=== PATIENT | female | born 1960 | race Caucasian/White ===

== ENCOUNTER → 2016-11-04 | Outpatient (CLI) | payer OTHER ==
--- NOTE | 2016-11-04 17:44 | DX ---
Chest, Two Views at 1642 hours History: R07.89. RIGHT SIDED CHEST WALL PAIN Comparison: None. Findings: Cardiac silhouette is within normal range. No definite destructive osseous lesions. No pneu monia, congestive heart failure, pleural effusion, or pneumothorax. Impression: 1. No acute pulmonary disease. 2. Consider CT chest imaging if there is continued clinical concern.
== END ==
LOC: BRMIMAGING 16:33
PROVIDERS: ATTEND Registered Nurse
DX: R07.89 Other chest pain (principal)
CPT/HCPCS: 71020-PO